=== PATIENT | female | born 1995 | race American Indian/Alaskan Native ===

== ENCOUNTER 2018-05-09 16:38 | Inpatient (IN) | payer BC ==
[2018-05-09] MEDS ORDERED: INFUVITE 10 ML in D5LR 1,000 ML IV ONE (18:16)
--- NOTE | 2018-05-09 18:20 | History and Physical Report ---
History of Present Illness Date of examination: 05/09/18 Date of admission: 05/09/18 17:49 Chief complaint: nausea, vomiting, weight loss History of present illness: Pt is a 22 year old -[place] female BEATRIS 10/15/18 at 17w2d who presents c/o persistent nausea and vomiting 5-6 times daily and a 15 pound weight loss over the last 2-3 wks. She has been to the Emergency Department at [facility] twice for these complaints but has not yet been admitted to the hospital. She has not filled the medications that were prescribed for her at the ED. She does report a h/o GERD as well. She has had care at [facility] since 7 wks complicated by obesity, and chlamydia treated with a negative test of cure. Of note, the patient was prescribed Diclegis and PO Zofran for her nausea and vomiting without much relief. 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 smear (s/p colposcopy in 01/2018 ) Family/Genetic History: none Social history: no significant social history - Obstetrical History Expected Date of Delivery: 10/15/18 Actual Gestation: 17 Week(s) 3 Day(s) : 2 Para: 0 Hx # Term Pregnancies: 0 Number of Pregnancies: 0 Spontaneous Abortions: 1 Induced : 0 Number of Living Children: 0 Medications and Allergies Allergies Allergy/AdvReac Type Severity Reaction Status Date / Time No Known Allergies Allergy Unverified 05/09/18 16:52 Home Medications Medication Instructions Recorded Confirmed Last Taken Type No Known Home Medications [No 05/09/18 05/09/18 Unknown History Reported Home Medications] Review of Systems All systems: negative - Physical Exam Breasts: Positive: deferred Cardiovascular: Regular rate Lungs: Positive: Clear to auscultation Abdomen: Positive: soft (obese, gravid ) Uterus: Positive: enlarged (gravid) Extremities: Positive: normal - Obstetrical FHR: auscultation normal Results Result Diagrams: 05/09/18 19:30 05/09/18 19:30 All other labs normal. Assessment and Plan A: IUP at 17w3d Hyperemesis Obesity P: Admit to antepartum service IV hydration IV antiemetics Viability sono Advance diet as tolerated
[2018-05-09] MEDS: REGLAN IV SCH (19:55)
[2018-05-09] MEDS: PHENERGAN PR SCH (19:55)
[2018-05-09] MEDS: D5LR 1,000 ML IV SCH ×2 (19:56→22:17)
[2018-05-09 20:00] LABS: Basophils % (Auto) 0.2 % (0.0-1.8); Eosinophils # (Auto) 0.1 K/mm3 (0.0-0.4); Eosinophils % (Auto) 0.8 % (0.0-4.3); Hematocrit 36.4 % (30.3-42.9); Hemoglobin 12.6 gm/dl (10.1-14.3); Lymphocytes # (Auto) 1.3 K/mm3 (1.2-5.4); Lymphocytes % (Auto) 17.1 % (13.4-35.0); Mean Corpuscular HGB Conc 35 % (30-34); Mean Corpuscular Hemoglobin 30 pg (28-32); Mean Corpuscular Volume 87 fl (79-97); Monocytes # (Auto) 1.1 K/mm3 (0.0-0.8); Monocytes % (Auto) 14.7 % (0.0-7.3); Platelet Count 274 K/mm3 (140-440); Red Blood Count 4.21 M/mm3 (3.65-5.03); Red Cell Distribution Width 13.1 % (13.2-15.2)
[2018-05-09 20:16] LABS: Alanine Aminotransferase 47 units/L (7-56); Albumin 4.1 g/dL (3.9-5); BUN/Creatinine Ratio 20; Blood Urea Nitrogen 8 mg/dL (7-17); Calcium 9.7 mg/dL (8.4-10.2); Hemolysis Index 0; Lipase 29 units/L (13-60)
[2018-05-09 20:36] LABS: Hepatitis A Antibody IgM Non-Reactive (NonReactive); Hepatitis B Core IgM Non-Reactive (NonReactive); Hepatitis B Surface Antigen Non-Reactive (Negative); Hepatitis C Virus Antibody Non-Reactive (NonReactive)
--- NOTE | 2018-05-10 00:44 | Ultrasound Report ---
FINAL REPORT EXAM: US OB > = 14 WEEKS FETUS HISTORY: Viability COMPARISON: None available. TECHNIQUE: Several real-time grayscale and color Doppler images were obtained. FINDINGS: Single live IUP. Estimated gestational age 17 weeks 4 days. Estimated delivery date October 13, 2018. heart rate 137 beats per minute. Estimated weight 203 grams. BPD 3.8 centimeters 17 weeks 4 days. Head circumference 14.4 centimeters 17 weeks 4 days. Abdominal circumference 12.0 centimeters 17 weeks 5 days. Femoral length 2.5 centimeters 17 weeks 4 days. presentation cephalic. Placenta location anterior. No placenta previa. The cervix is closed and measures 3.2 centimeters in length. Visualized heart, stomach, urinary bladder, kidneys, cerebral ventricles are normal in appearance. Three-vessel umbilical cord with abdominal insertion. IMPRESSION: Single live IUP. Estimated gestational age 17 weeks 4 days. Estimated delivery date October 13, 2018. No or placental abnormality demonstrated.
[2018-05-10] MEDS: PHENERGAN PR SCH ×4 (01:09→19:05)
[2018-05-10] MEDS: REGLAN IV SCH ×4 (01:09→19:33)
[2018-05-10 04:56] LABS: Bacteria,Urine 2+ /HPF (Negative); Bilirubin,Urine NEG (Negative); Blood,Urine NEG (Negative); Color,Urine Yellow (Yellow); Mucus,Urine FEW /HPF; Protein,Urine <15 mg/dL mg/dL (Negative); Urobilinogen,Urine < 2.0 mg/dL (<2.0)
--- NOTE | 2018-05-10 08:24 | Progress Note ---
Assessment and Plan A: IUP at 17w3d Hyperemesis Obesity P: Continue current management Advance diet as tolerated Subjective - Subjective Date of service: 05/10/18 Principal diagnosis: IUP at 17 wks, Hyperemesis Interval history: Pt feels better. No emesis since admission. Patient reports: no new complaints, no vaginal bleeding, no contractions Objective - Vital Signs Vital Signs: Vital Signs - 12hr 05/09/18 05/10/18 05/10/18 21:29 01:18 04:45 Temperature 98.9 F 98.4 F Pulse Rate 89 94 H 66 Respiratory 20 20 Rate Blood Pressure 117/76 98/54 Blood Pressure 89/47 [Right] O2 Sat by Pulse 97 98 Oximetry 05/10/18 05/10/18 04:50 07:23 Temperature 97.7 F 98.6 F Pulse Rate 88 83 Respiratory 20 20 Rate Blood Pressure 81/42 94/44 Blood Pressure [Right] O2 Sat by Pulse 96 98 Oximetry - Exam Breasts: deferred Cardiovascular: Regular rate Lungs: Clear to auscultation Abdomen: Present: soft (obese, gravid ) Uterus: Present: normal (gravid ) Extremities: normal - Labs Labs: Abnormal Labs 05/09/18 05/09/18 19:30 19:30 MCHC 35 H RDW 13.1 L Hubbard % (Auto) 14.7 H Hubbard # 1.1 H Sodium 133 L Potassium 3.0 L Chloride 91.0 L Creatinine 0.4 L Glucose 107 H AST 42 H Laboratory Results - last 24 hr 05/09/18 05/09/18 05/09/18 19:30 19:30 19:30 WBC 7.7 RBC 4.21 Hgb 12.6 Hct 36.4 MCV 87 MCH 30 MCHC 35 H RDW 13.1 L Plt Count 274 Lymph % (Auto) 17.1 Hubbard % (Auto) 14.7 H Eos % (Auto) 0.8 Baso % (Auto) 0.2 Lymph # 1.3 Hubbard # 1.1 H Eos # 0.1 Baso # 0.0 Seg Neutrophils % 67.2 Seg Neutrophils # 5.2 Sodium 133 L Potassium 3.0 L Chloride 91.0 L Carbon Dioxide 23 Anion Gap 22 BUN 8 Creatinine 0.4 L Estimated GFR > 60 BUN/Creatinine Ratio 20 Glucose 107 H Calcium 9.7 Total Bilirubin 0.50 AST 42 H ALT 47 Alkaline Phosphatase 66 Total Protein 7.5 Albumin 4.1 Albumin/Globulin Ratio 1.2 Amylase 90 Lipase 29 TSH 2.150 Urine Color Urine Turbidity Urine pH Ur Specific [place] Urine Protein Urine Glucose (UA) Urine Ketones Urine Blood Urine Nitrite Urine Bilirubin Urine Urobilinogen Ur Leukocyte Esterase Urine WBC (Auto) Urine RBC (Auto) U Epithel Cells (Auto) Urine Bacteria (Auto) Urine Mucus Hepatitis A IgM Ab Hep Bs Antigen Hep B Core IgM Ab Hepatitis C Antibody 05/09/18 05/10/18 19:30 03:55 WBC RBC Hgb Hct MCV MCH MCHC RDW Plt Count Lymph % (Auto) Hubbard % (Auto) Eos % (Auto) Baso % (Auto) Lymph # Hubbard # Eos # Baso # Seg Neutrophils % Seg Neutrophils # Sodium Potassium Chloride Carbon Dioxide Anion Gap BUN Creatinine Estimated GFR BUN/Creatinine Ratio Glucose Calcium Total Bilirubin AST ALT Alkaline Phosphatase Total Protein Albumin Albumin/Globulin Ratio Amylase Lipase TSH Urine Color Yellow Urine Turbidity Hazy Urine pH 7.0 Ur Specific [place] 1.010 Urine Protein <15 mg/dl Urine Glucose (UA) 150 Urine Ketones 20 Urine Blood Neg Urine Nitrite Neg Urine Bilirubin Neg Urine Urobilinogen < 2.0 Ur Leukocyte Esterase Tr Urine WBC (Auto) 4.0 Urine RBC (Auto) 3.0 U Epithel Cells (Auto) < 1.0 Urine Bacteria (Auto) 2+ Urine Mucus Few Hepatitis A IgM Ab Non-reactive Hep Bs Antigen Non-reactive Hep B Core IgM Ab Non-reactive Hepatitis C Antibody Non-reactive - Results US- obstetric: report reviewed
[2018-05-10] MEDS: PRENATAL VITAMIN PO SCH (14:06)
[2018-05-11] MEDS: REGLAN IV SCH ×3 (01:14→13:27)
[2018-05-11] MEDS: ZOFRAN IV PRN ×2 (06:14→20:46)
--- NOTE | 2018-05-11 14:44 | Event Note ---
Date: 05/11/18
--- NOTE | 2018-05-11 14:46 | Progress Note ---
Assessment and Plan O: VSS Af A: 17 week nausea and vomiting P: Change IV meds to po Anticipate am discharge Subjective - Subjective Date of service: 05/11/18 Principal diagnosis: IUP at 17 wks, Hyperemesis Patient reports: other (Resting with eyes closed), no new complaints, no vaginal bleeding, no contractions Objective - Vital Signs Vital Signs: Vital Signs - 12hr 05/11/18 05/11/18 05/11/18 04:24 07:57 11:11 Temperature 98.3 F 98.7 F 98.3 F Pulse Rate 99 H 87 99 H Respiratory 20 18 20 Rate Blood Pressure 106/53 72/33 103/60 O2 Sat by Pulse 100 96 98 Oximetry - Exam Narrative Exam: Per RN report patient has not had any Nausea or vomiting since admit. Tolerating Diet Breasts: deferred - Labs Labs: Abnormal Labs 05/09/18 05/09/18 05/11/18 19:30 19:30 13:04 MCHC 35 H RDW 13.1 L Dare % (Auto) 14.7 H Dare # 1.1 H Sodium 133 L Potassium 3.0 L 3.3 L Chloride 91.0 L Creatinine 0.4 L Glucose 107 H AST 42 H Laboratory Results - last 24 hr 05/10/18 05/11/18 05/11/18 17:45 06:00 13:04 Potassium 3.3 L Urine Ketones Negative Neg
[2018-05-11] MEDS ORDERED: PHENERGAN PO PRN (15:00)
[2018-05-11] MEDS ORDERED: TRANSDERM-SCOP TD SCH (15:00)
[2018-05-12] MEDS: PRENATAL VITAMIN PO SCH ×2 (09:32→12:53)
--- NOTE | 2018-05-12 10:31 | Progress Note ---
Assessment and Plan A: IUP at 17w5d Hyperemesis - much improved Obesity P: Discharge today with follow up within the next week with Dr Smith Subjective - Subjective Date of service: 05/12/18 Principal diagnosis: IUP at 17 wks, Hyperemesis Interval history: Pt with emesis yesterday after eating too much food. Otherwise she feels much better. Tolerating regular diet. Patient reports: no new complaints, no vaginal bleeding, no contractions Objective - Vital Signs Vital Signs: Vital Signs - 12hr 05/11/18 05/12/18 05/12/18 23:20 04:23 05:15 Temperature 98.5 F 99.0 F 98.5 F Pulse Rate 84 94 H 100 H Pulse Rate [ Apical] Pulse Rate [ Left Radial] Respiratory 18 18 18 Rate Blood Pressure Blood Pressure 108/68 93/49 96/54 [Right] O2 Sat by Pulse 97 Oximetry 05/12/18 05/12/18 08:47 10:00 Temperature 98.1 F Pulse Rate 87 Pulse Rate [ 87 Apical] Pulse Rate [ 87 Left Radial] Respiratory 16 Rate Blood Pressure 98/53 Blood Pressure [Right] O2 Sat by Pulse 99 Oximetry - Exam Breasts: deferred Cardiovascular: Regular rate Lungs: Clear to auscultation Abdomen: Present: soft (obese) Uterus: Present: normal (gravid ) FHR: auscultation normal Extremities: normal - Labs Labs: Abnormal Labs 05/09/18 05/09/18 05/11/18 19:30 19:30 13:04 MCHC 35 H RDW 13.1 L Pratt % (Auto) 14.7 H Pratt # 1.1 H Sodium 133 L Potassium 3.0 L 3.3 L Chloride 91.0 L Creatinine 0.4 L Glucose 107 H AST 42 H Laboratory Results - last 24 hr 05/11/18 05/11/18 05/12/18 13:04 18:15 05:13 Potassium 3.3 L Urine Ketones Negative Neg
--- NOTE | 2018-05-12 10:35 | Discharge Summary ---
Providers - Providers Date of Admission: 05/09/18 17:49 Date of discharge: 05/12/18 Attending physician: BARON SMITH 05/09/18 18:16 Consult to Dietitian/Nutrition [CONS] Routine Physician Instructions: Reason For Exam: Reason for Consult: hyper grav Reason for Consult: hyperemesis Primary care physician: BARON SMITH Hospitalization Reason for admission: other (IUP at 17 wks, hyperemesis ) Procedure details: IV antiemetics. IV hydration. Discharge diagnosis: other (IUP at 17 wks, Hyperemesis ) Hospital course: Pt was admitted for hyperemesis at 17 wks. She received IV antiemetics and hydration. Her diet was advanced as well. By HD#3,she was tolerating a regular diet. She will be discharged today with follow up in the next week with Dr Smith. Condition at discharge: Stable Disposition: DC-01 TO HOME OR SELFCARE - Discharge Diagnoses (1) Hyperemesis gravidarum Status: Acute (2) Obesity (BMI 30.0-34.9) Status: Acute (3) Status: Acute Qualifiers: Weeks of gestation: 17 weeks Qualified Code(s): Z3A.17 - 17 weeks gestation of Plan - Provider Discharge Summary Activity: routine Diet: routine (Avoid spicy, fried or fatty foods) Additional instructions: [] Smoking cessation referral if applicable(refer to patient education folder for contact #) [] Refer to [facility]'s [facility] Booklet Call your doctor immediately for: * Fever > 100.5 * Heavy vaginal bleeding ( >1 pad per hour) * Severe persistent headache * Shortness of breath * Reddened, hot, painful area to leg or breast * Drainage or odor from incision. * Keep incision clean and dry at all times and follow doctor's instructions regarding bathing/showering - Follow up plan Follow up: BARON SMITH MD [Primary Care Provider] - 05/16/18 (Please call to schedule appt )
[2018-05-12 17:11] VITALS: BP 107/62
== END 2018-05-12 16:50 | disposition home or self-care (01) | DRG 781 ==
LOC: UNDOADMIN 16:38 → 3A 16:38 → OB 17:49
PROVIDERS: ADMIT Obstetrics & Gynecology; ATTEND Obstetrics & Gynecology
DX: O21.0 Mild hyperemesis gravidarum (principal); O99.212 Obesity complicating pregnancy, second trimester; O99.612 Diseases of the digestive system complicating pregnancy, second trimester; K21.9 Gastro-esophageal reflux disease without esophagitis; E66.9 Obesity, unspecified; Z68.34 Body mass index [BMI] 34.0-34.9, adult; Z3A.17 17 weeks gestation of pregnancy
CPT/HCPCS: 36415; 76805; 80053; 80074; 81001; 82010; 82150; 83690; 84132; 84443; 85025; J2405; J2765; J7121; Q0169

== ENCOUNTER 2019-02-05 10:12 | Observation (INO) | payer BC ==
[2019-02-05] MEDS ORDERED: LACTATED RINGERS 1,000 ML IV SCH (11:05)
--- NOTE | 2019-02-05 11:24 | Anesthesia Day of Surgery ---
Anesthesia Day of Surgery - Day of Surgery Patient Examined: Yes Patient H&P Reviewed: Yes Patient is NPO: Yes Beta Blockers: No Cardiac Clearance: No Pulmonary Clearance: No
--- NOTE | 2019-02-05 11:24 | Anesthesia Consultation ---
Anesthesia Consult and Med Hx Date of service: 02/05/19 - Airway Anesthetic Teeth Evaluation: Good ROM Head & Neck: Adequate Mental/Hyoid Distance: Adequate Mallampati Class: Class II Intubation Access Assessment: Good - Pulmonary Exam CTA: Yes - Cardiac Exam Cardiac Exam: RRR - Pre-Operative Health Status ASA Pre-Surgery Classification: ASA1 Proposed Anesthetic Plan: General - Pulmonary Hx Smoking: No Hx Asthma: No COPD: No Hx Pneumonia: No Hx Sleep Apnea: No (ЕЛЕНА PRE SCREEN LOW RISK) - Cardiovascular System Hx Hypertension: No Hx Heart Attack/AMI: No - Central Nervous System Hx Seizures: No Hx Psychiatric Problems: No - Gastrointestinal Hx Gastroesophageal Reflux Disease: Yes (Hiatal hernia) - Endocrine Hx Renal Disease: No Hx End Stage Renal Disease: No Hx Hypothyroidism: No Hx Hyperthyroidism: No - Hematic Hx Anemia: Yes Hx Sickle Cell Disease: No - Other Systems Hx Alcohol Use: No Hx Cancer: No
[2019-02-05] MEDS ORDERED: DEMEROL IV PRN (11:25)
[2019-02-05] MEDS ORDERED: SUBLIMAZE IV PRN (11:25)
[2019-02-05] MEDS ORDERED: NARCAN 0.4 MG/1 ML IV PRN (11:25)
[2019-02-05] MEDS ORDERED: ZOFRAN IV PRN (11:25)
[2019-02-05] MEDS ORDERED: DILAUDID IV PRN (11:25)
[2019-02-05] MEDS ORDERED: ANCEF/STERILE WATER 2 GM/20 ML 2 GM/20 ML SYRINGE IV ONE (11:36)
[2019-02-05] MEDS ORDERED: MARCAINE 0.5% INFILTRATI ONE (12:05)
[2019-02-05] MEDS ORDERED: NEOSPORIN GU IR ONE ×2 (12:05→13:30)
[2019-02-05] MEDS ORDERED: METHYLENE BLUE ONE (12:05)
[2019-02-05] MEDS ORDERED: PREMARIN VG ONE ×2 (12:08→14:50)
[2019-02-05] MEDS ORDERED: Vasostrict ONE (12:09)
[2019-02-05] MEDS ORDERED: SUBLIMAZE ONE ×2 (12:11)
[2019-02-05] MEDS ORDERED: DIPRIVAN 10 MG/ML IV ONE (12:11)
[2019-02-05] MEDS ORDERED: ANCEF/STERILE WATER 2 GM/20 ML IV NR (12:32)
[2019-02-05] MEDS ORDERED: ZOFRAN ONE (13:02)
[2019-02-05] MEDS ORDERED: XYLOCAINE MPF 2% ONE (13:02)
[2019-02-05] MEDS ORDERED: DECADRON ONE (13:02)
[2019-02-05] MEDS ORDERED: ROBINUL ONE (13:02)
[2019-02-05] MEDS ORDERED: NACL 0.9% IR ONE (13:20)
[2019-02-05] MEDS ORDERED: WATER FOR IRRIG STERILE IR ONE (13:30)
[2019-02-05] MEDS ORDERED: DILAUDID ONE (13:53)
--- NOTE | 2019-02-05 15:03 | Post Operative Note ---
Date of procedure: 02/05/19 Pre-op diagnosis: urethral tic Post-op diagnosis: same Findings: R sided tic Procedure: cysto diverticulectomy Anesthesia: GETA Surgeon: KRISHAN MARSHALL Estimated blood loss: other (150) Pathology: list (tic) Specimen disposition: to lab Condition: stable Disposition: PACU
[2019-02-05] MEDS ORDERED: MORPHINE IV PRN (15:14)
[2019-02-05] MEDS ORDERED: PERCOCET 5/325 PO PRN (15:14)
[2019-02-05] MEDS ORDERED: TYLENOL PO PRN (15:14)
--- NOTE | 2019-02-05 15:57 | Operative Report ---
PREOPERATIVE DIAGNOSIS: Urethral diverticulectomy with pain. POSTOPERATIVE DIAGNOSIS: Urethral diverticulectomy with pain. PROCEDURE: Urethral diverticulectomy, cystoscopy. SURGEON: Bogdan Howell MD ANESTHESIA: General. 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 We saw her in the office, we supposed to do a surgery a couple of weeks ago, but she cancelled because of attendant child activity. She now presents back to surgery. DESCRIPTION OF PROCEDURE: The patient was brought to the operating room and placed on the operating table. Following induction of anesthesia, placed in lithotomy position, prepped and draped in usual sterile fashion. A Mello catheter was placed after the timeout and the Phillips retractor was placed. The diverticulum could be palpated and we can see some pus coming around the Mello with much more decompressed and we saw her in the office. At this point, we made an incision over the area where which was palpated and there was increased vascularity because of the inflammatory changes. We used the cautery and sutures as needed. Once we got into the plane, we saw what looked to be the diverticulum, but it was inflamed. Just to be on the safe side, we took a small 22-gauge spinal needle and we trying to fill it up and it did come out the urethra. We placed 2 stay sutures on the diverticulum because dissecting on the right lateral side ____ small blood vessels. We opened up the diverticulum, there was a pouch, it was irrigated free and the surrounding epithelium was excised. It was also cauterized. We saw what looked to be a small tiny communication, was oversewn with 4-0 Vicryl. The patient tolerated the procedure well. Wound was irrigated. There was really nothing in the diverticulum cavity except for an epithelialized cavity. This was trimmed out and cystoscopy showed no obvious communication and no more diverticulum. At this point, we used Edgar and the cavity was sutured with interrupted sutures of 4-0 Vicryl. The urethra was reconstructed just the meatus was sutured. It was not marsupialized, reconstructed along with vaginal epithelium in the nice closure. The patient tolerated the procedure well. Wound was irrigated. Estimated blood loss was less than 150 mL. Vaginal pack was placed. We had placed a couple of sutures from where the Phillips was, there was a slight vaginal tear, which was approximated with 3-0 Chromic on the right side. The patient tolerated the procedure well. The wound was irrigated. Everything looked well and Mello catheter #20 was draining clear, brought to recovery in stable condition. JOB# [id number] CANDICE/TERESA
[2019-02-05] MEDS ORDERED: D5W/0.45% NACL/KCL 20 MEQ 20 MEQ/1,000 ML BAG IV SCH (16:00)
[2019-02-05] MEDS: ZOFRAN IV PRN (19:59)
[2019-02-06] MEDS: ANCEF/NS 1 GM/50 ML 1 GM/50 ML BAG IV SCH ×2 (00:29→06:25)
[2019-02-06] MEDS: ZOFRAN IV PRN (05:13)
--- NOTE | 2019-02-06 08:52 | Post Anesthesia Evaluation ---
- Post Anesthesia Evaluation Patient Participated: Yes Airway Patent: Yes Stable Respiratory Function: Yes Nausea/Vomiting: No Temp > 96.8F: Yes Pain Manageable: Yes Adequeate Hydration: Yes Anesthesia Complications: No
[2019-02-06 09:36] VITALS: BP 94/59
--- NOTE | 2019-02-06 09:58 | Short Stay Summary ---
Short Stay Documentation Date of service: 02/06/19 - History H&P: obtained from office - Allergies and Medications Current Medications: Allergies No Known Allergies Allergy (Verified 10/26/18 21:16) Home Medications Medication Instructions Recorded Confirmed Last Taken Type Ranitidine HCl [Zantac 150 MG TAB] 150 mg PO PRN PRN 10/08/18 02/05/19 01/05/19 History Active Medications Acetaminophen (Tylenol) 650 mg PO Q4H PRN PRN Reason: Pain MILD(1-3)/Fever >100.5/ROBERTO Potassium Chloride/Dextrose/Sod Cl (D5w/0.45% Nacl/Kcl 20 Meq) 20 meq in 1,000 mls @ 125 mls/hr IV DIRECT TALYA Last Admin: 02/06/19 00:28 Dose: 125 mls/hr Documented by: Meperidine HCl (Demerol) 25 mg IV ONCE PRN PRN Reason: Shivering Morphine Sulfate (Morphine) 2 mg IV Q4H PRN PRN Reason: Pain, Moderate (4-6) Last Admin: 02/06/19 08:17 Dose: 2 mg Documented by: Naloxone HCl (Narcan 0.4 Mg/1 Ml) 0.1 mg IV Q2MIN PRN PRN Reason: Res Rate </= 8 or 02 SAT < 92% Ondansetron HCl (Zofran) 4 mg IV Q8H PRN PRN Reason: N/V unrelieved by Reglan Last Admin: 02/06/19 05:13 Dose: 4 mg Documented by: Oxycodone/Acetaminophen (Percocet 5/325) 1 tab PO Q6H PRN PRN Reason: Pain, Moderate (4-6) Last Admin: 02/06/19 05:13 Dose: 1 tab Documented by: - Brief post op/procedure progress note Date of procedure: 02/06/19 Pre-op diagnosis: urethral tic Post-op diagnosis: same Procedure: repair of urethral tic Anesthesia: PALA Surgeon: ZULEIKA BRYANT Estimated blood loss: minimal Pathology: none Condition: stable - Hospital course Hospital course: doing + pelvic pressure - packing removed (nurse present) home with hoang pt has abx & pain pill - Disposition Condition at discharge: Stable Short Stay Discharge Plan Follow up with: DR SUZANNE [Other] - 7 Days
== END 2019-02-06 12:30 | disposition home or self-care (01) ==
LOC: OR 10:12 → 3B-SURG 15:03
PROVIDERS: ADMIT Urology; ATTEND Urology
DX: N30.20 Other chronic cystitis without hematuria (principal); D41.3 Neoplasm of uncertain behavior of urethra; N36.1 Urethral diverticulum; Z79.899 Other long term (current) drug therapy
CPT/HCPCS: 53230; 81025; 86850; 86900; 86901; 88304; 96365; 96366; 96375; 96376; A4217; G0378; J0690; J1100; J1170; J2270; J2405; J2704; J3010; J7120; 88305; Q9968